=== PATIENT | male | born 1980 | race Asian ===

== ENCOUNTER 2022-04-28 07:54 | Outpatient (CLI) | payer OTHER, BC, SELFPAY | END 2022-04-28 07:55 | disposition home or self-care (01) | LOC: AMB 05-12 03:34 | PROVIDERS: Visit Provider Family Medicine | DX: S89.91XA Unspecified injury of right lower leg, initial encounter (principal); S89.92XA Unspecified injury of left lower leg, initial encounter; V49.40XA Driver injured in collision with unspecified motor vehicles in traffic accident, initial encounter; Y92.488 Other paved roadways as the place of occurrence of the external cause | CPT/HCPCS: A0425; A0427 ==

== ENCOUNTER 2022-04-28 08:17 | Emergency (ER) | payer OTHER, BC, SELFPAY ==
[2022-04-28] VITALS (10 sets, daily range): BP systolic 120–135; BP diastolic 81–100; PULSE 64–76; RESP 14–16; TEMP 36.3; O2SAT 98–100; BMI 22.8
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
--- NOTE | 2022-04-28 09:05 | PC.NURSE ---
pt to imaging
[2022-04-28] MEDS: ACETAMINOPHEN 500 MG TABLET 1000 MG PO (09:10)
[2022-04-28 09:11] LABS: Basophils Absolute Auto 0.03 K/uL (0.00-0.30); Basophils Percent Auto 0.5 % (0.0-3.0); Eosinophils Absolute Auto 0.14 K/uL (0.00-0.50); Eosinophils Percent Auto 2.4 % (0.0-7.0); Hematocrit 44.7 % (37.0-53.0); Immature Granulocytes Abs Auto 0.01 K/uL (0.00-0.30); Lymphocytes Absolute Auto 1.69 K/uL (0.90-2.90); Lymphocytes Percent Auto 28.6 % (20-44); Mean Corpuscular HGB Conc 34 gm/dL (32-36); Mean Corpuscular Hemoglobin 31 pg (26-34); Mean Corpuscular Volume 92 fL (80-100); Monocytes Percent Auto 7.8 % (0.0-11.0); Neutrophils Absolute Auto 3.57 K/uL (1.7-7.0); Neutrophils Percent Auto 60.5 % (42.0-72.0); Platelet Count* 239 K/uL (140-440); RDW Coefficient of Variation % 12.7 % (11.5-15.5); Red Blood Count 4.87 m/uL (4.30-5.90)
[2022-04-28 09:18] LABS: Slide Review Reflex No
--- NOTE | 2022-04-28 09:29 | PC.NURSE ---
pt back from imaging
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
[2022-04-28 09:50] LABS: Appearance Urine Clear (Clear); Bilirubin Urine Negative (Negative); Blood Urine Negative (Negative); Color Urine Yellow (Yellow); Glucose Urine Negative (Negative); Ketones Urine Negative (Negative); Leukocyte Esterase Urine Negative (Negative); Nitrite Urine Negative (Negative); Protein Urine Negative (Negative); Urobilinogen Urine 0.2 (0.2-1.0)
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
--- NOTE | 2022-04-28 10:29 | PC.NURSE ---
pt up to bathroom, able to stand and transfer to wheelchair, pain in kim areas
[2022-04-28 10:30] LABS: RBC Urine 0-2 (0-2); WBC Urine 0-2 (0-5)
--- NOTE | 2022-04-28 12:05 | PC.NURSE ---
pt was able to get up and ambulate from ER, pt has work slip and asked for lab results which were given
== END 2022-04-28 12:05 | disposition home or self-care (01) ==
PROVIDERS: Emergency Provider Family Medicine
DX: T14.8XXA Other injury of unspecified body region, initial encounter (principal); V43.52XA Car driver injured in collision with other type car in traffic accident, initial encounter; Y93.9 Activity, unspecified; Y92.411 Interstate highway as the place of occurrence of the external cause
CPT/HCPCS: 36415; 71046; 72170; 73590; 76604; 76705; 81001; 84484; 85025; 93005; 93308; 99285; 99291; A9270; G0390